=== PATIENT | female | born 2000 | race Caucasian/White ===

== ENCOUNTER 2024-11-21 14:17 | Outpatient (AMB) | payer BC, SELFPAY ==
[2024-11-21 14:23] VITALS: BP 126/76; PULSE 75; RESP 17; TEMP 36.8; O2SAT 98; BMI 27.8
--- NOTE | 2024-11-21 14:23 | AMB.GYNCLNOT ---
Vital Signs 11/21/24 14:23 Height 1.6 m Height Method Stated Weight 71.384 kg Weight Measurement Method Standing Scale BMI 27.8 BP 126/76 Blood Pressure Source Automatic Cuff Blood Pressure Location Right Upper Arm Position Sitting Respiration 17 Pulse 75 Pulse Source Monitor Temp 98.2 F Temp Source Temporal Artery Scan Pulse Oximetry (%) 98 Oxygen Delivery Method Room Air Allergies/Home Meds Allergies & Medications Allergies No Known Allergies Allergy (Verified 11/21/24 14:25) Medication Reconciliation No Known Home Medications 11/21/24 [History Confirmed 11/21/24] Intake Visit Data Collection New Patient or Established: New Patient (never been to [facility]) Reason for Visit:: FOLLOW UP SAB Seen by Clinical Staff ONLY (RN/MA): No 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 Do You Feel Safe at Home: Yes Authorities Contacted: N/A PCP or OBGYN visit in last 3 months: No Hx Now: No Are you currently on any form of Control: No Last menstrual period: 09/02/24 Pain Present Currently: No Pain Scale Used: Kumari-Alfred/Numerical Pain scale:: 0 Smoking Status Smoking Status: Never smoker 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 1. Little interest or pleasure in doing things: not at all 2. Feeling down, depressed, or hopeless: not at all Total score: 0 PHQ-9 3. Trouble falling or staying asleep, or sleeping too much: Not at all 4. Feeling tired or having little energy: Not at all 5. Poor appetite or overeating: Not at all 6. Feeling bad about yourself - or that you are a failure or have let yourself or your family down: Not at all 7. Trouble concentrating on things, such as reading the newspaper or watching television: Not at all 8. Moving or speaking so slowly that other people could have noticed? - Or the opposite - being so fidgety or restless that you have been moving around a lot more than usual: not at all 9. Thoughts that you would be better off or of hurting yourself in some way: Not at all Total score: 0 If you checked off any problems, how difficult have these problems made it for you to do your work, take care of things at home, or get along with other people?: not difficult at all Source: Developed by Drs. Mandeep Castano, Martha Massey, Robert Montaño and colleagues, with an educational venkata from [employer]. Depression screen completed yes Social History Living Situation History Marital Status: Single Lives With: Family Housing: House Tobacco History Smoking Status: Never smoker Second Hand Smoke Exposure: No Alcohol History Alcohol Intake: Never Domestic Abuse History Do You Feel Safe at Home: Yes History of Present Illness HPI Narrative This is a 24-year-old 1 para 0 for ER follow-up. Patient's last period September 02, 2024. Estimated due date June 09, 2024. Patient had her first OB appointment November 13 and at that time she was 9 weeks. She went to see her OB provider in [place]. At that point she was told that there was no heart tones and she had a demise. The doctor offered her D&C and the patient declined at that visit. Patient then went to [facility] for a second opinion and again she was told she had a demise. So the patient went back to [facility] ER on November 17 she was given misoprostol for pills to take at once. The following day nothing happened she passed a couple small clots and had some spotting and that was it so today she comes for follow-up. Patient denies social habits. Denies surgery. Denies chronic illness. Review of Systems Review of Systems Systems Reviewed: All systems reviewed, normal except as documented Exam Narrative Physical exam: no FHT, 9 week fetus on sono General Limitations: no limitations General Appearance: alert, in no apparent distress, comfortable, cooperative, healthy appearing, well developed and well groomed Head Head exam: atraumatic, normocephalic and normal inspection Chest Chest inspection: Present normal inspection and symmetric chest wall rise Resp Respiratory exam: Present normal lung sounds bilaterally Card Cardiovascular exam: Present regular rate, normal rhythm and normal heart sounds Abdominal Abdominal exam: Present soft and normal bowel sounds Psych Psychiatric exam: Present normal affect and normal mood Results Objective Imaging: +IUP 9 wk by CRL on sono per Dr Limon. sono result sent for scan Office Procedures [facility] LOC & Office Proc's Nursing/Assessment Patient Status: Initial/New Patient OB Clinic Nursing Assessment: Medication Reconciliation, Orthostatic Vitals, Update PMH in EMR and Vital Signs OB Clinic Coordination of Care: Complex Care and Chronic Disease 1-5, Education Complex Pt/Fam, Consent,records obtained, informed consent, Lab and Imaging orders, Results/Orders obtained and Staff clarify orders New Patient Charge New Patient Point Assignment: 1119 New Patient Point Charge: EXECUTIVE ADMINISTRATOR Level 4 ([id number]) Assessment & Plan Diagnosis / Problem List (1) Missed : Status: Acute Plan Consulted with OB doctor on-call/Dr Limon to verify findings on ultrasound. Patient stated she would like D&C since misoprostol failed. Advised patient to continue ibuprofen for cramping. We gave patient a lab slip for CBC, CMP and type and Rh. Discussed ER precautions again with patient. And patient is waiting for approval of DNC by insurance. And then patient will be notified and scheduled as soon as possible. Additional Plan Follow Up: 2 Weeks (f/u fiona)
== END 2024-11-21 15:12 | disposition home or self-care (01) ==
PROVIDERS: Supervising Provider Advanced Practice Midwife; Visit Provider Advanced Practice Midwife
DX: O02.1 Missed abortion (principal)
CPT/HCPCS: 99204; G0463